=== PATIENT | female | born 1945 | race Caucasian/White ===

== ENCOUNTER 2021-05-29 16:51 | Emergency (ER) | payer MEDICARE, SELFPAY ==
[2021-05-29 17:01] VITALS: BP 148/68; PULSE 90; RESP 16; TEMP 36.3; O2SAT 98
--- NOTE | 2021-05-29 17:16 | ED.EYEPROB ---
HPI - Eye Problem General Chief complaint: Eye Problems Stated complaint: right eye pain Time Seen by Provider: 05/29/21 17:16 Source: patient Mode of arrival: ambulatory Limitations: no limitations History of Present Illness HPI Narrative: 76-year-old female presents with pain, redness, clear drainage from right eye. States prior to arrival she was outside, it was a little bit windy and something blew into her eye. Patient states that when she felt something fly into her eyes she reached up and rubbed her eye. She irrigated her eye prior to arrival with no relief of symptoms. All systems reviewed and negative except as noted above. Related Data Home Medications Medication Instructions Recorded Confirmed aspirin [Aspir-81] 81 mg PO DAILY 05/29/21 05/29/21 azathioprine 05/29/21 cyanocobalamin (vitamin B-12) 500 mcg PO DAILY 05/29/21 05/29/21 [Vitamin B-12] fenofibrate micronized 134 mg PO DAILY 05/29/21 05/29/21 folic acid 0.4 mg PO DAILY 05/29/21 05/29/21 levothyroxine 50 mcg PO DAILY 05/29/21 05/29/21 omeprazole 40 mg PO BID 05/29/21 05/29/21 simvastatin 10 mg PO DAILY 05/29/21 05/29/21 Allergies Allergy/AdvReac Type Severity Reaction Status Date / Time No Known Allergies Allergy Verified 05/29/21 17:14 Review of Systems Review of Systems: CONSTITUTIONAL: Denies fever, chills, or sweats. EYES: Denies visual changes. Reports redness, watery discharge, pain to right eye. ENT: Denies rhinorrhea, congestion, sore throat, or otalgia. CARDIOVASCULAR: Denies chest pain, palpitations, or edema. RESPIRATORY: Denies cough or dyspnea. GASTROINTESTINAL: Denies abdominal pain, nausea, vomiting, or diarrhea. GENITOURINARY: Denies dysuria or hematuria. SKIN: Denies rash or itching. MUSCULOSKELETAL: Denies back pain, joint pain, or myalgia. NEUROLOGIC: Denies headache, numbness, or weakness. PSYCHIATRIC: Denies anxiety or depression. All other systems reviewed are negative, except as documented in HPI. [facility] Comments At time of signature, agree with nursing past medical, surgical, social and family history. There is no relevant family history pertinent to the presenting complaint. Exam Narrative: GENERAL: This is a well-nourished, well-developed patient, in no apparent distress. HEAD: normocephalic, atraumatic. EYES: PERRL. Erythema and injection to conjunctive. Clear drainage from right eye. Under fluorescein with River lamp a small corneal abrasion was noted to right eye. No foreign body noted. EARS: External ears normal, auditory canals clear and without drainage, TMs normal without perforation. Hearing grossly intact. NOSE: External nose normal with no obvious nasal discharge, nares without redness, no rhinorrhea. THROAT: Mucous membranes moist, posterior pharynx clear. NECK: Neck supple, non-tender without lymphadenopathy, masses or thyromegaly. CARDIOVASCULAR: Regular rate and rhythm without murmurs, gallops, or rubs. RESPIRATORY: Clear to auscultation. Breath sounds equal bilaterally. No wheezes, rales, or rhonchi. GASTROINTESTINAL: Abdomen soft, non-tender, nondistended. Bowel sounds are active. No hepato-splenomegaly, or palpable masses. No guarding. SKIN: warm, Dry, intact with no suspicious lesions or rash, good texture and turgor. NEURO: awake, alert, and oriented to person, place and time. There were no obvious focal neurologic abnormalities. EXTREMITIES: No joint tenderness, effusion, or edema noted. No calf tenderness. Negative Homans sign bilaterally. BACK: Nontender without deformity. No CVA tenderness. Course Course Level of Care: Express Care Visit Vital Signs Vital signs: Vital Signs Temperature 36.3 C L 05/29/21 17:01 Pulse Rate 90 05/29/21 17:01 Respiratory Rate 16 05/29/21 17:01 Blood Pressure 148/68 H 05/29/21 17:01 Pulse Oximetry 98 05/29/21 17:01 Temperature 36.3 C L 05/29/21 17:01 Pulse Rate 90 05/29/21 17:01 Respiratory Rate 16 05/29/21 17:01 Blood Pressure 1
== END 2021-05-29 17:38 | disposition home or self-care (01) ==
PROVIDERS: Emergency Provider Nurse Practitioner Family
DX: S05.01XA Injury of conjunctiva and corneal abrasion without foreign body, right eye, initial encounter (principal); X58.XXXA Exposure to other specified factors, initial encounter; Z79.82 Long term (current) use of aspirin; E78.00 Pure hypercholesterolemia, unspecified; I10 Essential (primary) hypertension
CPT/HCPCS: 99213; A9270; G0463